=== PATIENT | male | born 2000 | race Caucasian/White ===

== ENCOUNTER 2023-09-02 23:02 | Emergency (ER) | payer OTHER, SELFPAY ==
[2023-09-02 23:09] VITALS: BP 132/80
[2023-09-03] MEDS: NSS 1000 IV (00:40)
[2023-09-03] MEDS: ZOFRAN 4 MG IV (00:40)
--- NOTE | 2023-09-03 00:41 | ED.GENMED ---
History of Present Illness
General
Chief Complaint: Throat Problem
Source: patient and family (Mom who is at bedside)
Exam Limitations: none
Time Seen by Provider: 09/03/23 00:03
Nursing documentation reviewed up to this point in time: agreed with
History of Present Illness
History of Present Illness:
This is a 22-year-old male with no significant past medical history who complains of moderate sore throat that began August 23. He was evaluated in urgent care on that day and reportedly had negative rapid strep. Moderate sore throat has persisted
since that time, worse today with onset of intermittent nausea and vomiting throughout the day today. Moderate pain with swallowing and laying and he notes intermittent 'violent episodes of vomiting' with increased throat pain. He has had an
occasional dry cough, subjective fevers. No abdominal pain, no diarrhea or constipation. No close contacts with similar symptoms.
He denies significant nasal congestion or sinus pain. He has had rare intermittent mild pain to his left ear.
He presents with mom with concern for possible dehydration, decreased oral intake today.
No history of similar episodes of sore throats nor similar episodes of vomiting.
He takes no medicines on a daily basis.
No recent travel.
Past History
Past History
ED Past Medical History: Other (Psoriasis)
ED Past Surgical History: Other (Adenoidectomy)
Social History
Tobacco: Non-smoker
Alcohol: None
Drug: None
Personal: Single
Living: with family
Employment: Student
Family History
Family History: Other (Noncontributory)
Phy Exam
Physical Exam
Physical Exam:
GENERAL: 22-year-old male appears his stated age, bright and alert, pleasant, appears in no acute distress. Speech is clear. No difficulty handling secretions. Afebrile. Mother is accompanying.
EYE: pupils equal and reactive. anicteric
NECK: Supple, nontender, no meningismus, mild submandibular adenopathy is noted bilaterally.
ENT: posterior pharynx is mildly to moderately injected without edema nor exudate nor ulcerations, there is scant pearly postnasal drip is noted, oral mucosa is moist. lips are mildly dry. TM clear b/l, nares patent with mildly boggy pale turbinates.
CARDIAC: Regular rate and rhythm. no murmur.
LUNGS: Clear breath sounds bilaterally, no acute respiratory distress, no wheezes/rales/rhonchi
ABDOMEN: Soft, nondistended, without focal tenderness, no r/g, normoactive BS.
NEUROLOGICAL: Alert and oriented x3, no focal neuro deficits. Gait is benz and steady.
SKIN: Warm and dry, normal color, skin intact. No rash.
MUSCULOSKELETAL: No C/C/E. peripheral pulses are full and equal b/l. No palpable tenderness.
PSYCH: Normal and appropriate interaction.
Course
Orders/Labs/Results
Orders:
Orders
09/03/23 00:12
0.9% Sodium Chloride 1000 ml [Nss] 1,000 ml IV BOLUS
Ondansetron Injectable [Zofran] 4 mg IV NOW STA
09/03/23 00:40
Complete Blood Count/With Diff Urgent
Comprehensive Metabolic Panel Urgent
Manual Differential Urgent
Monotest Urgent
Rapid Strep Group A Urgent
SHILPA Source: Throat/Pharynx
Specimen Description:
Date Specimen was Collected: 09/03/23
Time Specimen was Collected: 00:28
09/03/23 00:48
COVID-19 Antigen Urgent
Source: Nasal Swab
09/03/23 00:51
Dexamethasone Sod Phosphate [Decadron] 10 mg IV NOW STA
Ketorolac [Toradol] 30 mg IV NOW STA
Abnormal Lab Results
09/03/23
00:40
WBC 14.9 H 10^3/uL
(4.8-10.8)
Abs Neuts (Manual) 7.5 H 10^3/uL
(1.4-6.5)
Band Neutrophils 7 H %
(0-3)
Carbon Dioxide 20 L mmol/L
(22-30)
BUN 5 L mg/dl
(9-20)
Total Bilirubin 1.9 H mg/dl
(0.2-1.3)
AST 243 H U/L
(17-59)
ALT 485 H U/L
(0-50)
Alkaline Phosphatase 451 H U/L
(38-126)
Monoscreen Positive A
(Negative)
09/03/23 00:40
09/03/23 00:40
Vital Signs
Initial and Last Documented VS:
Initial Vital Signs
Temp Pulse Resp BP Pulse Ox
98.1 F 70 22 132/80 98
09/02/23 23:09 09/02/23 23:09 09/02/23 23:09 09/02/23 23:09 09/02/23 23:09
Last Documented Vital Signs
Temp Pulse Resp BP Pulse Ox
98.1 F 70 22 132/80 99
09/02/23 23:09 09/02/23 23:09 09/02/23 23:09 09/02/23 23:09 09/03/23 00:51
MDM/Problems Addressed
Differential Diagnosis Includes:
Concern for occult streptococcal pharyngitis, viral pharyngitis, other consideration is mononucleosis, viral URI with postnasal drip.
With complaints of vomiting throughout the day today, concern for dehydration, electrolyte abnormality.
Abdominal exam soft and benign. Nothing to suggest acute abdominal process.
Will initiate IV fluids, give IV Zofran for nausea, IV Toradol for pain.
Will check labs. Will repeat rapid strep for completeness sake. Will check Monospot and COVID-19 antigen.
*Pulse Oximetry
Patient hypoxic: no
*Critical Care Note
Total Time (30-74mins, 75-104mins- exclusive of procedures): Not Applicable
Update Note
Update Note:
09/03/2023 0143 AM
Patient feeling improved after IV fluids, Zofran. No further nausea. No further vomiting. Sore throat is improving.
Labs show moderately elevated white blood cell count of 14.9 with 12% atypical lymphs. Monospot is positive.
Moderately elevated LFTs consistent with acute mononucleosis.
It appears acute pharyngitis is related to acute mononucleosis.
Recommend supportive measures, staying well-hydrated. Will prescribe Zofran for as needed nausea.
Discussed importance of avoiding contact sports at least over the next 4 to 6 weeks.
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
Follow-up with PCP for recheck.
Return precautions discussed.
ED Attending Note
-
Portions of this chart may have been created with voice recognition software.� Occasional wrong word or��sound alike� substitutions may have occurred due to the inherent limitations of voice recognition software.
Discharge Plan
Departure
Patient Disposition: Home (Routine Discharge)
Date of Disposition: 09/03/23
Time of Disposition: 01:42
Patient with high blood pressure during this ER visit?: No
Condition: Good
Discharge Problem:
Acute pharyngitis due to infectious mononucleosis
Instructions: Mononucleosis
Referrals:
Nandini Tran MD [Family Provider] - Call in 1-3 days for appt
Interventions
Interventions:
*Risk Screen - Suicide Last Done: 09/02/23 23:09
*General Assessment Last Done: 09/03/23 00:51
*Neglect/Abuse Screening Last Done: 09/02/23 23:09
*ED COVID-19 Vaccine History Last Done: 09/03/23 00:51
HD-Iwxzbc-Ymsmgrqjng Assessment Last Done: 09/03/23 00:51
ED-EENT Assessment Last Done: 09/03/23 00:51
ED- Pulmonary Assessment Last Done: 09/03/23 00:51
Discharge Date and Time
Print Language: SLOVAK
[2023-09-03 00:51] VITALS: BMI 27.4
[2023-09-03 00:55] LABS: Mean Corp Hgb Conc. 35.7 g/dL (33.0-37.0); Mean Corpuscular Hgb 30.7 pg (27.0-31.0); Mean Corpuscular Volume 85.9 fL (80.0-94.0); Mean Platelet Volume 10.2 fL (7.4-10.4); Nucleated Red Blood Cells % 0 % (-); Platelet Count 221 10^3/uL (130-400); Red Blood Cell Count 4.89 10^6/uL (4.70-6.10); Red Cell Dist. Width 13.6 % (11.5-14.5); White Blood Cell Count 14.9 10^3/uL (4.8-10.8)
[2023-09-03] MEDS: TORADOL 30 MG IV (01:02)
[2023-09-03] MEDS: DECADRON 10 MG IV (01:02)
[2023-09-03 01:07] LABS: Monotest Positive (Negative)
[2023-09-03 01:10] LABS: ALT (SGPT) 485 U/L (0-50); AST (SGOT) 243 U/L (17-59); Albumin 4.6 g/dl (3.5-5.0); Alkaline Phosphatase 451 U/L (38-126); Blood Urea Nitrogen 5 mg/dl (9-20); Calcium 10.1 mg/dl (8.4-10.2); Carbon Dioxide 20 mmol/L (22-30); Chloride 107 mmol/L (98-107); Estimated Creatinine Clearance 122 ml/min; Glucose 90 mg/dl (70-99); Potassium 4.3 mmol/L (3.5-5.1); Sodium 139 mmol/L (135-145); Total Bilirubin 1.9 mg/dl (0.2-1.3); Total Protein 7.4 g/dl (6.3-8.2); eGFR > 60.00
[2023-09-03 01:10] LABS: COVID-19 Antigen Negative (Negative)
[2023-09-03 01:19] LABS: Absolute Neutrophils -Man Diff 7.5 10^3/uL (1.4-6.5); Band Neutrophils 7 % (0-3); Eosinophils 1 % (0-6); Lymphocytes 33 % (20-51); Monocytes 3 % (2-9); Segmented Neutrophils 44 % (42-75)
[2023-09-03 01:20] LABS: Atypical Lymphocytes 12 %; Normal RBC Morphology Yes; Platelets Checked Yes; Total Cells Counted 100
[2023-09-03 01:59] VITALS: BP 126/74
== END 2023-09-03 02:01 | disposition home or self-care (01) ==
LOC: EMR 23:02
PROVIDERS: EMERGENCY PHYSICIAN Emergency Medicine; FAMILY PHYSICIAN Internal Medicine
DX: B27.90 Infectious mononucleosis, unspecified without complication (principal); L40.9 Psoriasis, unspecified
CPT/HCPCS: 99283; 96374; 96375; 96361; 80053; 85025; 86308; 87070; 87811; 87880